=== PATIENT | female | born 1990 | race American Indian/Alaskan Native ===

== ENCOUNTER 2018-12-05 11:20 | Emergency (ER) | payer BC ==
--- NOTE | 2018-12-05 11:48 | Emergency Department Report ---
Blank Doc - Documentation Documentation: This is a 28-year-old female that presents with panic attack. Stated has hist ory of panic attacks on the road and traffic makes it worse. Stated that driving to [place] started to get anxious and started to have chest pain with shortness of breatje. Stated symptoms are now subsided and resolved but wants to be checked. This initial assessment/diagnostic orders/clinical plan/treatment(s) is/are subject to change based on patient's health status, clinical progression and re- assessment by fellow clinical providers in the ED. Further treatment and workup at subsequent clinical providers discretion. Patient/guardians urged not to elope from the ED as their condition may be serious if not clinically assessed and managed. Initial orders include: 1- Patient sent to [facility] for further evaluation and treatment 2- EKG 3- CXR
[2018-12-05 11:49] VITALS: BP 127/79
[2018-12-05] MEDS ORDERED: ATIVAN PO ONE (12:49)
--- NOTE | 2018-12-05 12:49 | Emergency Department Report ---
ED General Adult HPI - General Chief complaint: Chest Pain Stated complaint: LT ARM NUMB/CHEST PRESSURE Time Seen by Provider: 12/05/18 11:44 Source: patient Mode of arrival: Ambulatory Limitations: No Limitations - History of Present Illness Initial comments: 28-year-old female with history of anxiety presents to the ED following a anxiety attack. Patient states she and her boyfriend driving from [place] to [place]. Patient's boyfriend was driving, and she was talking to her boyfriend about her friend who recently had an [place]. In addition to this they were also stuck in traffic, which patient reports can trigger an anxiety attack for her. Patient states she began to feel tightness in her chest, which she usually experiences with anxiety attacks. However, this time she also had associated numbness and tingling in arms and legs, lightheadedness, burning in her chest, and cold chills. Patient states she takes Prozac daily for anxiety, however she does not have any when necessary medications. Patient is requesting something for the rest of the drive to [place]. -: This morning Location: chest, left, right, upper extremity, lower extremity Quality: burning, other (tightness) Consistency: now resolved Improves with: none Worsens with: none Associated Symptoms: chest pain. denies: diaphoresis, nausea/vomiting, shortness of breath - Related Data Previous Rx's Medication Instructions Recorded Last Taken Type LORazepam [Ativan] 1 mg PO BID PRN #10 tablet 12/05/18 Unknown Rx Allergies Allergy/AdvReac Type Severity Reaction Status Date / Time bupropion Allergy Rash Verified 12/05/18 11:23 ED Review of Systems ROS: Stated complaint: LT ARM NUMB/CHEST PRESSURE Other details as noted in HPI Comment: All other systems reviewed and negative Respiratory: denies: shortness of breath Cardiovascular: chest pain Gastrointestinal: denies: nausea, vomiting ED Past Medical Hx - Past Medical History Additional medical history: anxiety, ADD - Social History Smoking Status: Never Smoker Substance Use Type: None - Medications Home Medications: Home Medications Medication Instructions Recorded Confirmed Last Taken Type LORazepam [Ativan] 1 mg PO BID PRN #10 tablet 12/05/18 Unknown Rx ED Physical Exam - General Limitations: No Limitations General appearance: alert, in no apparent distress - Head Head exam: Present: atraumatic, normocephalic - Eye Eye exam: Present: normal appearance - ENT ENT exam: Present: mucous membranes moist - Neck Neck exam: Present: normal inspection - Respiratory Respiratory exam: Present: normal lung sounds bilaterally. Absent: respiratory distress - Cardiovascular Cardiovascular Exam: Present: regular rate, normal rhythm - GI/Abdominal GI/Abdominal exam: Present: soft. Absent: distended, tenderness - Extremities Exam Extremities exam: Present: normal inspection - Neurological Exam Neurological exam: Present: alert, oriented X3, CN II-XII intact. Absent: motor sensory deficit - Psychiatric Psychiatric exam: Present: normal affect, normal mood - Skin Skin exam: Present: warm, dry, intact, normal color. Absent: rash ED Course Vital Signs 12/05/18 12/05/18 11:46 12:20 Temperature 98.9 F Pulse Rate 80 Respiratory 18 16 Rate Blood Pressure 127/79 [Left] O2 Sat by Pulse 98 Oximetry ED Medical Decision Making - EKG Data -: EKG Interpreted by Id EKG shows normal: sinus rhythm, axis, intervals, QRS complexes, ST-T waves Rate: normal - EKG Data Interpretation: no acute changes, normal EKG - Radiology Data Radiology results: image reviewed - Differential Diagnosis anxiety Critical care attestation.: If time is entered above; I have spent that time in minutes in the direct care of this critically ill patient, excluding procedure time. ED Disposition Clinical Impression: Anxiety Disposition: DC-01 TO HOME OR SELFCARE Is pt being admited?: No Condition: Stable Instructions: Anxiety (ED) Prescriptions: LORazepam [Ativan] 1 mg PO BID PRN #10 tablet PRN Reason: Anxiety Referrals: KEVAN LU MD [Primary Care Provider] - 3-5 Days Time of Disposition: 12:51
--- NOTE | 2018-12-05 13:28 | XRay Report ---
ROUTINE CHEST, TWO VIEWS: Chest pain. PA and lateral views demonstrate the heart and mediastinal contour to be of normal size and shape. The lungs are clear and fully expanded and the soft tissues and bony structures are normal. IMPRESSION: Normal study.
== END 2018-12-05 13:20 | disposition home or self-care (01) ==
LOC: ED 11:20
DX: F41.9 Anxiety disorder, unspecified (principal); F98.8 Other specified behavioral and emotional disorders with onset usually occurring in childhood and adolescence
CPT/HCPCS: 71046; 93005; 93010